=== PATIENT | male | born 1965 | race Caucasian/White ===

== ENCOUNTER 2025-01-28 09:10 | Emergency (ER) | payer OTHER, SELFPAY ==
[2025-01-28 09:31] VITALS: BP 170/90; PULSE 72; TEMP 36.9; O2SAT 99; BMI 40.2
--- OUTSIDE RECORDS SUMMARY | 2025-01-28 09:51 | XMS_ITS | Clinical Summary ---
Author Organization [facility] Address [address] [place] [address] Care Team Providers Care Accelerator Systems Director Name Role Phone Irish Caldwell MD Primary Care Provider [phone] Allergies No known active allergies Medications MedicationSigDispense QuantityRefillsLast FilledStart DateEnd DateStatus Blood Glucose Monitoring Suppl (FreeStyle Lite) w/Device kit Daily.01/15/2022ctive FreeStyle lancets 1 each in the morning.2Active metFORMIN (Glucophage) 500 MG tablet Indications:Type 2 diabetes mellitus without complication, without long-term current use of insulin (HCC)TAKE 1 TABLET BY MOUTH IN THE MORNING AND THE EVENING WITH MEALS 60 tablet 1314Active glucose blood (FREESTYLE LITE) test strip Indications:Type 2 diabetes mellitus without complication, without long-term current use of insulin (HCC)1 each by Other route Daily 100 each 4Active dapagliflozin (Farxiga) 10 MG Indications:Type 2 diabetes mellitus with other specified complication, with long-term current use of insulin (HCC)Take 1 tablet (10 mg) by mouth Daily 30 tablet 111/0202525Active furosemide (Lasix) 20 MG tablet Indications:Lower extremity edemaTAKE 1 TABLET BY MOUTH EVERY DAY 30 tablet 1105Active pioglitazone (Actos) 15 MG tablet Indications:Poorly controlled diabetes mellitus (HCC),Type 2 diabetes mellitus with other specified complication (HCC)Take 1 tablet (15 mg) by mouth Daily 30 tablet 11009/29/1856726Active atorvastatin (Lipitor) 40 MG tablet Indications:Type 2 diabetes mellitus without complications (HCC)Take 1 tablet (40 mg) by mouth Daily 100 tablet 3095Active Active Problems ProblemNoted DateDiagnosed DateLower extremity edema11/22/2023Morbid (severe) obesity due to excess calories (E66.01)08/10/2023 Assessment & Plan (05/30/2024 2:09 PM EDT): This is a chronic medical condition that is stable since last assessment. No changes in treatment are suggested at this time. Continue Current meds. 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 We made recommendations on how to control your blood pressure, and minimize your risk of these copmplications. We also discussed your current barriers to a healthy living and importance of healthy diet and exercise. Prior to your visit today we have reviewed your chart and formed a plan to assist with providing you the best possible care. We reviewed the possible complications of hypertension including, stroke, heart failure and kidney impairment. In addition, we discussed your medications, the importance of taking them as prescribed. DASH diet handouts Assessment & Plan (11/22/2023 8:17 AM EDT): Our specific goals, for your hypertension, is to keep your blood pressure less than 140/90, and theimportance of weight control. We made recommendations on how to control your blood pressure, and minimize your risk of these copmplications. We also discussed your current barriers to a healthy living and importance of healthy diet and exercise. Prior to your visit today we have reviewed your chart and formed a plan to assist with providing you the best possible care. We reviewed the possible complications of hypertension including, stroke, heart failure and kidney impairment. In addition, we discussed your medications, the importance of taking them as prescribed. DASH diet handouts Poorly controlled diabetes tvfdtorx11/02/2024 Assessment & Plan (05/30/2024 2:08 PM EDT): No Tobacco use Follow ADA 1800 diet low carbohydrate Continue Med Compliance Goal LDL less than 100Goal BP 130/80 Goal HgbA1c < 7.0% Monitor Feet, monitor for infection Needs Exercise Yearly eye exams Prior to your visit today we reviewed your chart and outlined testing and treatment needed foryour care. Reviewed poissble complications of diabetes including, loss of vision, kidney failure and increased risk of heart attacks and stroke. We made recommendations on how to control your blood sugars, and minimize your risk of these complications. We discussed your current barriers to a healthy living and importance of healthy diet and exercise. Assessment & Plan (08/10/2023 8:54 AM EDT): Jardiance sample given Assessment & Plan (05/06/2023 3:10 PM EST): Needs A1c checked Has not been taking Soliqua Assessment & Plan (03/09/2023 8:45 AM EST): Much improved on the Soliqua Will f/up in a month and recheck A1c then Other wzrsvtbjgyspij42/11/2023 Assessment & Plan (05/30/2024 2:09 PM EDT): Diet and Exercise Encouraged Assessment & Plan (03/09/2023 8:44 AM EST): This is a chronic medical condition that is stable since last assessment. No changes in treatment are suggested at this time. Continue Current meds. Impaired fasting xdtjffl9610/16/2022Lipoprotein deficiency qxazzucm41/11/2023Type 2 diabetes mellitus, without long-term current use of wmwaxkq0110/16/2022 Assessment & Plan (09/25/2024 8:22 AM EDT): No Tobacco use Follow ADA 1800 diet low carbohydrate Continue Med Compliance Goal LDL less than 100Goal BP 130/80 Goal HgbA1c < 7.0% Monitor Feet, monitor for infection Needs Exercise Yearly eye exams Prior to your visit today we reviewed your chart and outlined testing and treatment needed foryour care. Reviewed poissble complications of diabetes including, loss of vision, kidney failure and increased risk of heart attacks and stroke. We made recommendations on how to control your blood sugars, and minimize your risk of these complications. We discussed your current barriers to a healthy living and importance of healthy diet and exercise. Assessment & Plan (03/07/2024 8:46 AM EST): No Tobacco use Follow ADA 1800 diet low carbohydrate Continue Med Compliance Goal LDL less than 100Goal BP 130/80 Goal HgbA1c < 7.0% Monitor Feet, monitor for infection Needs Exercise Yearly eye exams Prior to your visit today we reviewed your chart and outlined testing and treatment needed foryour care. Reviewed poissble complications of diabetes including, loss of vision, kidney failure and increased risk of heart attacks and stroke. We made recommendations on how to control your blood sugars, and minimize your risk of these complications. We discussed your current barriers to a healthy living and importance of healthy diet and exercise. Assessment & Plan (11/22/2023 8:17 AM EDT): No Tobacco use Follow ADA 1800 diet low carbohydrate Continue Med Compliance Goal LDL less than 100Goal BP 130/80 Goal HgbA1c < 7.0% Monitor Feet, monitor for infection Needs Exercise Yearly eye exams Prior to your visit today we reviewed your chart and outlined testing and treatment needed foryour care. Reviewed poissble complications of diabetes including, loss of vision, kidney failure and increased risk of heart attacks and stroke. We made recommendations on how to control your blood sugars, and minimize your risk of these complications. We discussed your current barriers to a healthy living and importance of healthy diet and exercise. Assessment & Plan (08/10/2023 8:49 AM EDT): No Tobacco use Follow ADA 1800 diet low carbohydrate Continue Med Compliance Goal LDL less than 100Goal BP 130/80 Goal HgbA1c < 7.0% Monitor Feet, monitor for infection Needs Exercise Yearly eye exams Prior to your visit today we reviewed your chart and outlined testing and treatment needed foryour care. Reviewed poissble complications of diabetes including, loss of vision, kidney failure and increased risk of heart attacks and stroke. We made recommendations on how to control your blood sugars, and minimize your risk of these complications. We discussed your current barriers to a healthy living and importance of healthy diet and exercise. Assessment & Plan (05/06/2023 3:07 PM EST): No Tobacco use Follow ADA 1800 diet low carbohydrate Continue Med Compliance Goal LDL less than 100Goal BP 130/80 Goal HgbA1c < 7.0% Monitor Feet, monitor for infection Needs Exercise Yearly eye exams Prior to your visit today we reviewed your chart and outlined testing and treatment needed foryour care. Reviewed poissble complications of diabetes including, loss of vision, kidney failure and increased risk of heart attacks and stroke. We made recommendations on how to control your blood sugars, and minimize your risk of these complications. We discussed your current barriers to a healthy living and importance of healthy diet and exercise. Assessment & Plan (03/09/2023 8:44 AM EST): No Tobacco use Follow ADA 1800 diet low carbohydrate Continue Med Compliance Goal LDL less than 100Goal BP 130/80 Goal HgbA1c < 7.0% Monitor Feet, monitor for infection Needs Exercise Yearly eye exams Prior to your visit today we reviewed your chart and outlined testing and treatment needed foryour care. Reviewed poissble complications of diabetes including, loss of vision, kidney failure and increased risk of heart attacks and stroke. We made recommendations on how to control your blood sugars, and minimize your risk of these complications. We discussed your current barriers to a healthy living and importance of healthy diet and exercise. Assessment & Plan (10/20/2022 8:46 AM EDT): Our specific goals, for your hypertension, is to keep your blood pressure less than 140/90, and theimportance of weight control. We made recommendations on how to control your blood pressure, and minimize your risk of these copmplications. We also discussed your current barriers to a healthy living and importance of healthy diet and exercise. Prior to your visit today we have reviewed your chart and formed a plan to assist with providing you the best possible care. We reviewed the possible complications of hypertension including, stroke, heart failure and kidney impairment. In addition, we discussed your medications, the importance of taking them as prescribed. DASH diet handouts Encounters DateTypeDepartmentCare NjptZsrdqzirgar43/16/2025Telephone [facility] [address] [place] [address] Irish Caldwell MD Med Refillfrom Last 3 Months Family History Medical HistoryRelationNameCommentsDiabetesMotherRelationNameStatusComments Brother1 brotherFatherDeceasedMotherDeceased Social History Tobacco UseTypesPacks/DayYears UsedDateSmoking Tobacco: Never Tobacco Cessation:Counseling Given: Not Answered Alcohol UseStandard Drinks/WeekCommentsYes0 (1 standard drink = 0.6 oz pure alcohol)1-2 drinks monthly or less, caffeine 1-2 cups/dayPHQ-2AnswerDate RecordedPatient Health Questionnaire-2 Elrfb735Sex and Gender InformationValueDate RecordedSex Assigned at BirthNot on fileLegal SexMale 05/20/2022 11:46 PM EDTGender IdentityNot on fileSexual OrientationNot on file Last Filed Vital Signs Vital SignReadingTime TakenCommentsBlood Grgddsvs924/8807 8:06 AM EDT Qtsfi651609/25/2024 8:06 AM XPUQgackmbzsjx64.4 ??C (97.5 ??F)09/05/2024 3:22 PM EDTRespiratory Qpiv044209/05/2024 3:22 PM EDTOxygen Usyisofzgz24%09/25/2024 8:06 AM EDTInhaled Oxygen Concentration--Pprpir534 kg (279 lb)09/25/2024 8:06 AM EDT Cbxovx263.1 cm (5' 10.5 )09/25/2024 8:06 AM EDTBody Mass Index39.4707 8:06 AM EDT Plan of Treatment DateTypeDepartmentCare Team (Latest Contact Info)Jalcdplhxgg50/24/2025 8:00 AM ESTOffice Visit [facility] [address] [facility] [address] [place] [address] Irish Caldwell MD [address] [facility] [address] [place] [address] Health MaintenanceDue DateLast DoneCommentsCT Gmqvfjjuoeqk1965Colonoscopy 1965FIT1965FOBT1965 7819Odtwtkiahuonn1967Diabetes: Retinopathy Csfkemjyp02/05/1977Pneumococcal Vaccine: Pediatrics (0 to 5 Years) and At-Risk Patients (6 to 64 Years) (1 of 2 - PCV)1986COVID-19 Vaccine (3 - 2024- season)504/, 05/31/2020Influenza Vaccine (#1) 2024Diabetes: Hemoglobin A1C507/, 05/30/2024, 03/07/2024, Additional history existsColorectal Cancer Ycrlvlrqo36/20/2025FIT-DNA02/24/2025 02/24/2022, 2Diabetes: Urine Protein Zftyscwhk84/02/61308003/09/2024, 01/27/2023, 01/15/2022 Procedures Procedure NamePriorityDate/TimeAssociated DiagnosisCommentsPOCT GLYCATED HEMOGLOBIN, QQORLZilebbz49/21/2025 8:16 AM EDT Type 2 diabetes mellitus with other specified complication, without long-term current use of insulin (HCC) MICROALBUMIN / CREATININE URINE QPTAGLreatlb89/02/2025 1:39 PM EST Type 2 diabetes mellitus with other specified complication, with long-term current use of insulin (HCC) LAB COLOGUARD?? COLON CANCER NJHSLJHbnzmbn80/20/2022 from Last 3 Months or Most Recently Relevant to Health Maintenance Results * (ABNORMAL) POCT Glycated hemoglobin, total (09/25/2024 8:16 AM EDT)Component ValueRef RangeTest MethodAnalysis TimePerformed AtPathologist Signature Hemoglobin A1C6.8Specimen (Source)Anatomical Location / LateralityCollection Method / VolumeCollection TimeReceived GzbwBzwua82/21/2025 8:16 AM EDT Narrative Authorizing ProviderResult TypeResult Kasey Caldwell MDPOINT OF CARE TEST ENTER/EDIT ORDERABLESFinal Result * Microalbumin / creatinine urine ratio (03/09/2024 1:39 PM EST)ComponentValue Ref RangeTest MethodAnalysis TimePerformed AtPathologist SignatureCREATININE, RANDOM AUORD6547 - 320 mg/dLQUESTALBUMIN, URINE0.2See Note: mg/dLQUESTComment: Reference Range: Reference Range Not established ALBUMIN/CREATININE RATIO, RANDOM URINE3<30 mg/g creatQUESTComment: The ADA defines abnormalities in albumin excretion as follows: Albuminuria Category ?Result (mg/g creatinine) Normal to Mildly increased <30 Moderately increased ? 30-299 Severely increased > OR = 300 The ADA recommends that at least two of three specimens collected within a 3-6 month period be abnormal before considering a patient to be within a diagnostic category. Specimen (Source)Anatomical Location / LateralityCollection Method / Volume Collection TimeReceived TimeUrineUrine specimen obtained by clean catch procedure / Kwuuqay0103/09/2024 1:39 PM EST03/09/2024 1:39 PM EST Narrative [facility] - 03/10/2024 10:11 AM EST FASTING:UNKNOWN FASTING: UNKNOWN Resulting Agency Comment Performing Organization Information ?Site ID: [id number] ?Name: [facility] ?Address: [address] [place] [id number] ?Director: Mendez Bridges MD Authorizing ProviderResult TypeResult StatusIrish Caldwell MDLAB URINE ORDERABLES Final ResultPerforming OrganizationAddressCity/State/ZIP CodePhone Number [facility] * Cologuard?? colon cancer screening (02/24/2022)ComponentValueRef RangeTest MethodAnalysis TimePerformed AtPathologist SignatureCOLOGUARD RESULT REPORTABLENegativeNegativeNOMS LEGACY EXTERNAL LABComment: NEGATIVE TEST RESULT. A negative Cologuard result indicates a low likelihood that a colorectal cancer (CRC) or advanced adenoma (adenomatous polyps with more advanced pre-malignant features) ??is present. The chance that a person with a negative Cologuard test has a colorectal cancer is less than 1in 1500 (negative predictive value >99.9%) or has an advanced adenoma is less than 5.3% (negative predictive value 94.7%). These data are based on a prospective cross-sectional study of 10,000individuals at average risk for colorectal cancer who were screened with both Cologuard and colonoscopy. (Jeannine Michaud et al, N Engl J Med 2014;370(14):1775-0476) The normal value (reference range) for this assay is negative. COLOGUARD RE-SCREENING RECOMMENDATION: Periodic colorectal cancer screening is an important part ofpreventive healthcare for asymptomatic individuals at average risk for colorectal cancer. ??Following a negative Cologuard result, the [place] [employer] Society and U.S. Multi-Society Task Force screening guidelines recommend a Cologuard re-screening interval of 3 years. References: [place] [employer] Guideline for Colorectal Cancer Screening: https://www.cancer.or g/cancer/azoas-gzblau-jzkhbz/vyidpwdfz-ydmuwjqsv-zbynuzs/acs-recommendations.htm johnathan.; Won ALBERTO, Randy LANDRUM, Akilah LantiguaK, Colorectal Cancer Screening: Recommendations for Physicians and Patients from the U.S. Multi-Society Task Force on Colorectal Cancer Screening , Am J Gastroenterology 2017; 112:9740-2415. TEST DESCRIPTION: Composite algorithmic analysis of stool DNA-biomarkers with hemoglobin immunoassay. ?? Quantitative values of individual biomarkers are not reportable and are not associated with individual biomarker result reference ranges. Cologuard is intended for colorectal cancer screening ofadults of either sex, 45 years or older, who are at average-risk for colorectal cancer (CRC). Cologuard has been approved for use by the U.S. FDA. The performance of Cologuard was established in a cross sectional study of average-risk adults aged 50-84. Cologuard performance in patients ages 45 to 49 years was estimated by sub-group analysis of near-age groups. Colonoscopies performed for a positive result may find as the most clinically significant lesion: colorectal cancer [4.0%], advanced adenoma (including sessile serrated polyps greater than or equal to 1cm diameter) [20%] or non- advanced adenoma [31%]; or no colorectal neoplasia [45%]. These estimates are derived from a prospective cross-sectional screening study of 10,000 individuals at average risk for colorectal cancer who were screened with both Cologuard and colonoscopy. (Jeannine Dupree al, N Engl J Med 2014;370(14):4130-5470.) Cologuard may produce a false negative or false positive result (no colorectal cancer or precancerous polyp present at colonoscopy follow up). A negative Cologuard test result does not guarantee the absence of CRC or advanced adenoma (pre-cancer). The current Cologuard screening interval is every 3 years. ([place] [employer] and U.S. Multi-Society Task Force). Cologuard performance data in a 10,000 patient pivotal study using colonoscopy as the reference method can be accessed at the following location: www.[employer]/results. Additional description of the Cologuard test process, warnings and precautions can be found at www.cologuard.com. Specimen (Source)Anatomical Location / LateralityCollection Method / Volume Collection TimeReceived Time02/24/2022 Narrative Authorizing ProviderResult TypeResult StatusIrish Caldwell MDLAB MOLECULAR DIAGNOSTICS ORDERABLESFinal ResultPerforming OrganizationAddressCity/State/ZIP CodePhone Number [facility] from Last 3 Months or Most Recently Relevant to Health Maintenance Insurance Care Teams Team MemberRelationshipSpecialtyStart DateEnd Date Irish Caldwell MD [address] [place] [address] [facility]
[2025-01-28 11:54] LABS: Hematocrit 41.8 % (42.0-54.0); Hemoglobin 14.6 g/dL (14.0-18.0); Immature Granulocytes Abs Auto 0.04 10^3/uL (0.00-0.03); Immature Granulocytes Pct Auto 0.4 % (0.0-0.5); Lymphocytes Absolute Auto 2.6 10^3/uL (1.2-3.8); Mean Corpuscular HGB Conc 34.9 g/dL (29.9-35.2); Mean Corpuscular Hemoglobin 29.6 pg (25.9-34.0); Mean Corpuscular Volume 84.6 fL (80.0-94.0); Platelet Count 228 10^3/uL (150-450); Red Blood Count 4.94 10^6/uL (4.70-6.10); White Blood Count 11.1 10^3/uL (4.0-11.0)
[2025-01-28 12:13] LABS: Alanine Aminotransferase 22 U/L (16-63); Albumin Globulin Ratio 0.8; Albumin Level 3.5 g/dL (3.4-5.0); Alkaline Phosphatase 107 U/L (46-116); Anion Gap 10.8; Aspartate Amino Transferase 17 U/L (15-37); Blood Urea Nitrogen 8.0 mg/dL (7.0-18.0); Calcium 8.9 mg/dL (8.5-10.1); Carbon Dioxide 30.4 mmol/L (21.0-32.0); Chloride 98 mmol/L (98-107); Estimated GFR (African America >60 (>=60 mL/min/1.73m^2); Estimated GFR (Non-African Ame >60 (>=60 mL/min/1.73m^2); Globulin 4.3 g/dL; Glucose 159 mg/dL (74-106); Potassium 4.2 mmol/L (3.5-5.1); Sodium 135 mmol/L (136-145); Total Protein 7.8 g/dL (6.4-8.2)
--- NOTE | 2025-01-28 12:21 | CT_ITS ---
The [address] [address] Patient Name: LORETTA SEWELL MRN: [id number] date: 1965 Sex: M Assigned Patient Location: ER Current Patient Location: ER Accession/Order Number: [id number] Exam Date: 01/28/2025 12:30 Report Date: 01/28/2025 13:18 At the request of: LIZZETTE MURPHY MD Procedure: CT abdomen pelvis wo con CT ABDOMEN AND PELVIS WITHOUT INTRAVENOUS CONTRAST: CLINICAL HISTORY: left flank pain COMPARISON: None TECHNIQUE: Spiral images were obtained through the abdomen and pelvis without intravenous contrast. This CT exam was performed using one or more following dose reduction techniques: Automated exposure control, adjustment of the mA and/or kV according to patient size, or use of iterative reconstruction technique. FINDINGS: Lung Bases: [Minimal atelectasis/scarring.] Organs:Suboptimal evaluation due to lack of IV contrast. Liver gallbladder pancreas and right adrenal gland appears unremarkable. Splenic granulomas. Myelolipoma left adrenal gland. Kidneys demonstrate no stone or hydronephrosis. Aorta appears normal in caliber.[ GI: Stomach is grossly unremarkable. Small bowel appears nondilated. Appendix is normal. No acute colonic abnormality.[ Pelvis:[Urinary bladder prostate gland appear unremarkable.] Peritoneum/Retroperitoneum:No free air free fluid or lymphadenopathy.[ Abd wall/Bones:No acute findings. Osseous structures and degenerative change.[ CT/CT abdomen pelvis wo con IMPRESSION: No acute findings. No Obstructive uropathy. Impression dictated by: Bj Mann Jr., D.OFamilia 01/28/2025 1:18 PM Dictation Location: [employer] Electronically authenticated by: [id number] Y Date: 01/28/2025 13:18
[2025-01-28 12:25] LABS: Lipase 274.0 U/L (16.0-77.0)
[2025-01-28] MEDS: KETOROLAC TROMETHAMINE 30 MG/ML VIAL IVP (13:11)
[2025-01-28] MEDS: 0.9 % SODIUM CHLORIDE 1,000 ML 1000 ML IV (13:11)
[2025-01-28 13:22] LABS: Glucose Urine UA 100 mg/dL (NEGATIVE)
[2025-01-28 13:41] LABS: Cast Seen? NONE SEEN #/LPF (NONE SEEN); Crystals Seen? None Seen #/HPF (None Seen); Urine Culture Indicated NO
--- NOTE | 2025-01-28 14:03 | ED_ITS ---
HPI - Abdominal Pain General Chief Complaint: Abdominal Pain Stated Complaint: L SIDED ABDOMINAL PAIN, VOMITING Time Seen by Provider: 01/28/25 10:18 Source: patient Mode of arrival: walk-in Limitations: no limitations History of Present Illness HPI narrative: 59-year-old male who denies any history of alcohol use presented to the ER with a left-sided flank pain that radiated to the front, the pain is associated with some constipation over the last few days that resolved today and the patient did take some [id number] medication for that Patient have no vomiting might have had some nausea no other concerns for fever or chills or any other complaint Related Data Previous Rx's ?Medication ?Instructions ?Recorded naproxen 375 mg tablet 375 mg PO BID PRN pain #20 t abs 01/28/25 Allergies Allergy/AdvReac Type Severity Reaction Status Date / Time No Known Drug Allergies Allergy Verified 01/28/25 09:33 Review of Systems ROS Status of ROS 10 or more systems reviewed and unremark able except as noted in history and below PFSH PFSH Social History Little interest or pleasure in doing things: not at all Feeling down, depressed, or hopeless: not at all Exam Narrative Exam Narrative: Nurses notes and vital signs reviewed and patient is not hypoxic. General: Well-appearing and in no apparent distress. Skin: Warm, dry, no pallor noted. No rash. Head: Normocephalic, atraumatic. Neck: Supple, non-tender. Eye: Pupils are equal, round and EOMI. No scleral icterus. Ears, Nose, Mouth, and Throat: TM are clear, no nasal mucosal hypertrophy. Oral mucosa is moist, no posterior oropharynx erythema, uvula is mid-line Cardiovascular: Regular Rate and Rhythm without murmur, gallop or rub. Respiratory: No accessory muscle use or respiratory distress. Lungs are clear to auscultation, no wheezing, rales or rhonchi Chest Wall: no tenderness Back: No midline thoracic or lumbar vertebral tenderness. No CVA tenderness Musculoskeletal: normal ROM, no calf or popliteal tenderness, no lower extremity edema/swelling GI: Abdomen is soft, non-distended. Normal bowel sounds. No masses appreciated. No tenderness to palpation. No rebound, guarding, or rigidity noted. The patient pointing to the left midaxillary line on the left side but he is not tender on palpation Neurological: A&O x4. No cranial nerve dysfunction observed. No truncal ataxia. Moves all extremities. Sensation intact. Psychiatric: Cooperative and interactive. Normal mood and affect. Constitutional Vital Signs, click to edit/add: Last Vital Signs Temp 98.5 F 01/28/25 09:31 Pulse 72 01/28/25 09:31 Resp 18 01/28/25 09:31 BP 170/90 H 01/28/25 09:31 Pulse Ox 99 01/28/25 09:31 O2 Del Method Room Air 01/28/25 09:31 Course Vital Signs Vital signs: Vital Signs Temperature 98.5 F 01/28/25 09:31 Pulse Rate 72 01/28/25 09:31 Respiratory Rate 18 01/28/25 09:31 Blood Pressure 170/90 H 01/28/25 09:31 Pulse Oximetry 99 01/28/25 09:31 Oxygen Delivery Method Room Air 01/28/25 09:31 Temperature 98.5 F 01/28/25 09:31 Pulse Rate 72 01/28/25 09:31 Respiratory Rate 18 01/28/25 09:31 Blood Pressure 170/90 H 01/28/25 09:31 Pulse Oximetry 99 01/28/25 09:31 Oxygen Delivery Method Room Air 01/28/25 09:31 MDM - Abdominal Pain MDM Narrative Medical decision making narrative: Patient CBC shows no significant white blood cells elevation Chemistry was within normal but the lipase was elevated The patient denies any history of alcohol drinking, he also denies any nausea or vomiting at the moment Patient was provided Toradol after which she was feeling better he also had a CAT scan of the abdomen pelvis that showed no acute pathology The only acute finding and the fact that the patient lipase elevated he have no tenderness upon palpation of the right upper quadrant and he there is no concern for acute cholecystitis The patient right now will be discharged home with supportive care for mild pancreatitis as well as other muscular pain of the abdominal wall The patient to follow-up with the primary care within 2 to 3 days and to come back to the ER in case of any worsening of the current symptoms or any new symptoms or concerns Lab Data Labs: Lab Results 01/28/25 01/28/25 Range/Units 11:48 13:13 WBC 11.1 H (4.0-11.0) 10^3/uL RBC 4.94 (4.70-6.10) 10^6/uL Hgb 14.6 (14.0-18.0) g/dL Hct 41.8 L (42.0-54.0) % MCV 84.6 (80.0-94.0) fL MCH 29.6 (25.9-34.0) pg MCHC 34.9 (29.9-35.2) g/dL RDW 12.7 (11.0-15.0) % Plt Count 228 (150-450) 10^3/uL MPV 8.4 L (9.5-13.5) fL Neut % (Auto) 70.2 (43.0-75.0) % Lymph % (Auto) 23.6 (20.5-60.0) % [place] % (Auto) 5.0 (1.7-12.0) % Eos % (Auto) 0.5 L (0.9-7.0) % Baso % (Auto) 0.3 (0.2-2.0) % Neut # (Auto) 7.8 H (1.4-6.5) 10^3/uL Lymph # (Auto) 2.6 (1.2-3.8) 10^3/uL Independence # (Auto) 0.6 (0.3-0.8) 10^3/uL Eos # (Auto) 0.1 (0.0-0.7) 10^3/uL Baso # (Auto) 0.0 (0.0-0.1) 10^3/uL Abs Immat Gran (auto) 0.04 H (0.00-0.03) 10^3/uL Imm/Tot Granulo (auto) 0.4 (0.0-0.5) % Sodium 135 L (136-145) mmol/L Potassium 4.2 (3.5-5.1) mmol/L Chloride 98 (98-107) mmol/L Carbon Dioxide 30.4 (21.0-32.0) mmol/L Anion Gap 10.8 BUN 8.0 (7.0-18.0) mg/dL Creatinine 0.75 (0.70-1.30) mg/dL Est GFR ( Amer) >60 (>=60 mL/min/1.73m^2) Est GFR (Non-Af Amer) >60 (>=60 mL/min/1.73m^2) BUN/Creatinine Ratio 10.7 Glucose 159 H (74-106) mg/dL Calcium 8.9 (8.5-10.1) mg/dL Total Bilirubin 1.5 H (0.2-1.0) mg/dL AST 17 (15-37) U/L ALT 22 (16-63) U/L Alkaline Phosphatase 107 (46-116) U/L Total Protein 7.8 (6.4-8.2) g/dL Albumin 3.5 (3.4-5.0) g/dL Globulin 4.3 g/dL Albumin/Globulin Ratio 0.8 Lipase 274.0 H (16.0-77.0) U/L Urine Color Yellow (YELLOW) Urine Clarity Clear (CLEAR) Urine pH 6.0 (5.0-9.0) Ur Specific Loyal >=1.030 A (1.005-1.025) Urine Protein Trace (NEG/TRACE) mg/dL Urine Glucose (UA) 100 A (NEGATIVE) mg/dL Urine Ketones Negative (NEGATIVE) mg/dL Urine Occult Blood Trace-i (NEGATIVE) Urine Nitrite Negative (NEGATIVE) Urine Bilirubin Negative (NEGATIVE) Urine Urobilinogen 2.0 A (0.2-1.0) EU/dL Ur Leukocyte Esterase Negative (NEGATIVE) Urine RBC 2-5 A (0-2) #/HPF Urine WBC 0-2 A (NONE SEEN) #/HPF Ur Squamous Epith Cells Few A (NONE/RARE) #/LPF Urine Crystals None seen (None Seen) #/HPF Urine Bacteria Trace A (NONE SEEN) #/HPF Urine Casts None seen (NONE SEEN) #/LPF Urine Mucus Large A (NONE SEEN) Ur Culture Indicated? No Discharge Plan Discharge Chief Complaint: Abdominal Pain Clinical Impression: Abdominal pain, Pancreatitis Patient Disposition: Home, Self-Care Condition: Good Prescriptions / Home Meds: New naproxen 375 mg tablet 375 mg PO BID PRN (Reason: pain) Qty: 20 0RF Print Language: Malian Instructions: Pancreatitis (ED), Acute Abdominal Pain (DC) Additional Instructions: Please come back to the ER in case of any new symptoms or any progression of s ymptoms Referrals: BIGG MIRAMONTES [Primary Care Provider, Family Practice] - 1 week Discharge Date/Time: 01/28/25 14:21
== END 2025-01-28 14:21 | disposition home or self-care (01) ==
PROVIDERS: Emergency Provider Emergency Medicine; PCP Family Medicine
DX: K85.90 Acute pancreatitis without necrosis or infection, unspecified (principal); R10.9 Unspecified abdominal pain
CPT/HCPCS: 36415; 74176; 80053; 81001; 83690; 85025; 96374; 99284; J1885